=== PATIENT | male | born 1990 | race Caucasian/White ===

== ENCOUNTER 2021-10-07 04:44 | Emergency (ER) | payer BC, SELFPAY ==
[2021-10-07] VITALS (10 sets, daily range): BP systolic 89–123; BP diastolic 69–77; PULSE 80–102; RESP 15–28; TEMP 36.7–37.1; O2SAT 90–96; BMI 21.3
--- NOTE | 2021-10-07 04:44 | ECG_ITS ---
APPROVED REPORT Exam: Resting ECG HR:96 bpm ECG Measurements Heart Rate 96 AXES MT 139 P 73 QRSd 85 QRS 82 QT 314 T 21 QTc 367 Conclusion SINUS RHYTHM POSSIBLE RIGHT VENTRICULAR CONDUCTION DELAY [RSR (QR) IN V1/V2] NONSPECIFIC T-WAVE ABNORMALITY BORDERLINE ECG UNCONFIRMED REPORT Electronically signed by : Christopher Sandoval MD 10/08/2021 12:33:01
--- NOTE | 2021-10-07 04:51 | XR_ITS ---
PROCEDURE INFORMATION: Exam: XR Chest Exam date and time: 10/07/2021 4:44 AM Age: 31 years old Clinical indication: Pain; Shortness of breath; Right-sided; Additional info: Chest pain TECHNIQUE: Imaging protocol: XR of the chest. Views: 2 views. COMPARISON: No relevant prior studies available. FINDINGS: Lungs: Mild linear atelectasis/fibrosis. No focal consolidation. Pleural spaces: Unremarkable. No pleural effusion. No pneumothorax. Heart/Mediastinum: Unremarkable. No cardiomegaly. Bones/joints: Mild scoliosis. IMPRESSION: No evidence of an active pulmonary process.
--- NOTE | 2021-10-07 04:53 | HMH.EDSOB ---
ED Disposition Clinical Impression: Reactive airway disease Qualifiers: Asthma severity: moderate Asthma persistence: persistent Asthma complication type: uncomplicated Qualified Code(s): J45.40 - Moderate persistent asthma, uncomplicated Disposition: Home, Self-Care Condition on Discharge: Good Instructions: DI for Shortness of Breath Additional Instructions: see pcp for follow up Prescriptions: predniSONE [Prednisone 20mg Tab] 20 mg PO BID #10 tab Transmission Status: Pending to [facility] Referrals: Provider,Referral, [Primary Care Provider] - - Critical Care Critical Care Time: No Attestation: On , the high probability of a clinically significant, sudden or life threatening deterioration of the following system(s) required my full and direct attention, intervention and personal management. The time I documented below is in addition to time spent performing reported procedures but includes the following listed in this critical care notation. Medical Decision Making - Medical Records Medical records reviewed: Yes: I reviewed the patient's medical records. - Marcos Inquiry Pt receiving controlled substance: No Vital Signs: 10/07/21 04:44 10/07/21 04:45 10/07/21 05:01 Temperature 98.8 F Temperature Source Oral Pulse Rate 102 H 89 Pulse Rate [Right Radial] 95 H Respiratory Rate 28 H Blood Pressure 115/74 89/69 L Blood Pressure [Right Arm] 115/74 Blood Pressure Mean [Right Arm] 87 Blood Pressure Source [Right Arm] Automatic Cuff Blood Pressure Position [Right Arm] Sitting 02 Sat by Pulse Oximetry 90 L 95 96 Oxygen Delivery Method Room Air Room Air Room Air 10/07/21 05:30 10/07/21 06:30 Temperature Temperature Source Pulse Rate 99 H 101 H Pulse Rate [Right Radial] Respiratory Rate Blood Pressure 120/76 108/72 L Blood Pressure [Right Arm] Blood Pressure Mean [Right Arm] Blood Pressure Source [Right Arm] Blood Pressure Position [Right Arm] 02 Sat by Pulse Oximetry 96 96 Oxygen Delivery Method Room Air Room Air - Lab Data Lab results reviewed: Yes: I reviewed the patient's lab results. Lab Results 10/07/21 04:45: WBC 11.1 H, RBC 4.64, Hgb 14.4, Hct 43.0, MCV 92.7, MCH 31.1, MCHC 33.5, RDW 13.1, Plt Count 263, MPV 8.4, Neut % (Auto) 84.6 H, Lymph % (Auto) 9.7 L, Shoshone % (Auto) 4.4, Eos % (Auto) 0.8, Baso % (Auto) 0.4, Neut # (Auto) 9.4 H, Lymph # (Auto) 1.1, Shoshone # (Auto) 0.5, Eos # (Auto) 0.1, Baso # (Auto) 0.1, ESR 31 H 10/07/21 04:45: Sodium 136, Potassium 4.2, Chloride 100, Carbon Dioxide 31 H, Anion Gap 9.2, BUN 21 H, Creatinine 0.70, Estimated Creat Clear 161, Estimated GFR 131, Est GFR ( Amer) 158, Glucose 116 H, Calcium 9.0, Troponin I < 0.01, C-Reactive Protein 15.4 H 10/07/21 04:45: Total Bilirubin 0.6, Direct Bilirubin 0.1, Conjugated Bilirubin 0.0, Indirect Bilirubin 0.5, Unconjugated Bilirubin 0.5, AST 35, ALT 18, Alkaline Phosphatase 82, Total Protein 7.3, Albumin 4.4 10/07/21 04:56: SARS-CoV-2 (PCR) Not detected, Influenza A Untype (PCR) Not detected, Influenza Type B (PCR) Not detected Result diagrams: 10/07/21 04:45 10/07/21 04:45 Orders (Tests/Meds): ED MEDICATIONS Discontinued Medications Generic Name Dose Route Start Last Admin Trade Name Freq PRN Reason Stop Dose Admin Albuterol/Ipratropium 3 ml 10/07/21 04:56 Ipratropium/Albuterol 3 Ml Neb IH 10/07/21 04:57 ONCE ONE Lactated Ringer's 1,000 mls @ 999 mls/hr 10/07/21 05:00 10/07/21 05:01 Lactated Ringer's 1000 Ml Bag IV 10/07/21 06:00 999 mls/hr .Q1H1M SYDNEY Administration Iopamidol 70 ml 10/07/21 05:28 10/07/21 05:29 Iopamidol-370 (76%);100ml Bottle IV 10/07/21 05:29 70 ml ONCE ONE Administration Ketorolac Tromethamine 30 mg 10/07/21 04:56 10/07/21 05:01 Ketorolac 30mg/Ml Vial IV 10/07/21 04:57 30 mg ONCE ONE Administration Methylprednisolone Sodium Succinate 125 mg 10/07/21 04:53 10/07/21 05:01 Methylpred
--- NOTE | 2021-10-07 04:58 | CT_ITS ---
PROCEDURE INFORMATION: Exam: CTA Chest With Contrast Exam date and time: 10/07/2021 5:17 AM Age: 31 years old Clinical indication: Shortness of breath; Sternal or substernal pain; Additional info: SOA and chest tightness TECHNIQUE: Imaging protocol: Computed tomographic angiography of the chest with contrast. 3D rendering (Not supervised by radiologist): MIP and/or 3D reconstructed images were created by the technologist. Radiation optimization: All CT scans at this facility use at least one of these dose optimization techniques: automated exposure control; mA and/or kV adjustment per patient size (includes targeted exams where dose is matched to clinical indication); or iterative reconstruction. Contrast material: ISOVUE; Contrast volume: 70 ml; Contrast route: INTRATHECAL (MYELOGRAM); COMPARISON: CR XR CHEST 2V 10/07/2021 4:44 AM FINDINGS: Pulmonary arteries: The peripheral pulmonary arteries are is somewhat suboptimally opacified and there is mild motion artifact. Otherwise, there is no evidence of a pulmonary embolus. Aorta: Unremarkable. No aortic aneurysm. No aortic dissection. Lungs: Moderate reticular and ground-glass type opacities in the lung bases. Findings are are likely due to linear atelectasis/fibrosis (hypoventilatory changes). Nonspecific 4 mm juxtapleural nodule in the RML. Pleural spaces: Unremarkable. No pneumothorax. No pleural effusion. Heart: Unremarkable. No cardiomegaly. No pericardial effusion. Mediastinal space: Mild nonspecific esophageal thickening. Lymph nodes: Unremarkable. No enlarged lymph nodes. Bones/joints: Mild scoliosis. Soft tissues: Unremarkable. Other findings: No evidence of aneurysm or dissection. IMPRESSION: 1. No definite active pulmonary process. 2. Mildly limited, but otherwise unremarkable CTA. 3. Moderate reticular and ground-glass type opacities in the lung bases. Findings are are likely due to linear atelectasis/fibrosis (hypoventilatory changes). 4. Nonspecific 4 mm juxtapleural nodule in the RML which can be followed as indicated. 5. Mild nonspecific esophageal thickening. If the patient does not have known cancer, follow up should be based on clinical information because of the low risk of cancer in this age group. (Reference: Christiano) References: Christiano Pinto, et al. Guidelines for Management of Incidental Pulmonary Nodules Detected on CT Images: From the Fleischner Society 2017. Radiology. 2017;284(1):228-243.
[2021-10-07 05:01] LABS: Basophils # 0.1 K/mm3 (0-0.2); Basophils % 0.4 % (0.1-2.0); Eosinophils # 0.1 K/mm3 (0.0-0.4); Eosinophils % 0.8 % (0.1-12.0); Hemoglobin 14.4 g/dL (14.1-18.0); Lymphocytes # 1.1 K/mm3 (0.7-4.5); Lymphocytes % 9.7 % (10-50); Mean Corpuscular HGB Conc 33.5 g/dL (31.8-35.4); Mean Corpuscular Hemoglobin 31.1 pg (27.0-31.2); Mean Corpuscular Volume 92.7 fl (80-94); Mean Platelet Volume 8.4 fl (7.4-10.4); Monocytes # 0.5 K/mm3 (0.1-1.0); Monocytes % 4.4 % (1.7-9.3); Neutrophils # 9.4 K/mm3 (1.8-7.8); Neutrophils % 84.6 % (37.0-80.0); Platelet Count 263 K/mm3 (142-424); Red Blood Count 4.64 M/mm3 (4.60-6.20); Red Cell Distribution Width 13.1 % (11.5-17.5); White Blood Count 11.1 K/mm3 (4.8-10.8)
[2021-10-07 05:04] LABS: Alanine Aminotransferase 18 U/L (12-78); Albumin Level 4.4 g/dl (3.5-5.0); Alkaline Phosphatase 82 U/L (38-126); Anion Gap 9.2 mEq/L (5-15); Aspartate Amino Transferase 35 U/L (17-59); Bilirubin,Direct 0.1 mg/dl (0.0-0.4); Bilirubin,Indirect 0.5 mg/dL (0.0-0.9); Bilirubin,Total 0.6 mg/dl (0.2-1.3); Bilirubin,Unconjugated 0.5 mg/dL (0.0-1.1); Blood Urea Nitrogen 21 mg/dl (9-20); Carbon Dioxide 31 mmol/L (22.0-30.0); Chloride 100 mmol/L (98-107); Creatinine Clearance Estimated 161 mL/min (50-200); Estimated Glomerular Filt Rate 131 ml/min (>60); GFR (African American) 158 ML/MIN (>60); Glucose 116 mg/dl (74-100); Potassium 4.2 mmoL/L (3.5-5.1); Sodium 136 mmol/L (136-145); Total Protein,Serum 7.3 g/dl (6.3-8.2)
[2021-10-07 05:09] LABS: C-Reactive Protein 15.4 mg/L (0-4)
[2021-10-07 05:26] LABS: Troponin I < 0.01 ng/ml (0.00-0.034)
[2021-10-07 05:31] LABS: Erythrocyte Sedimentation Rate 31 mm/hr (0-15)
[2021-10-07 05:32] LABS: Coronavirus 19, PCR Not Detected (NotDetected); Influenza A, PCR Not Detected (NotDetected); Influenza B, PCR Not Detected (NotDetected)
--- NOTE | 2021-10-07 07:26 | PC.NURSE ---
Pt ambulated to bathroom. Back to room at this time with at bedside.
[2021-10-07 08:50] LABS: Troponin I < 0.01 ng/ml (0.00-0.034)
== END 2021-10-07 08:56 | disposition home or self-care (01) ==
PROVIDERS: Emergency Provider Emergency Medicine
DX: J45.40 Moderate persistent asthma, uncomplicated (principal); R01.1 Cardiac murmur, unspecified; F17.290 Nicotine dependence, other tobacco product, uncomplicated; Z20.822 Contact with and (suspected) exposure to COVID-19
CPT/HCPCS: 71046; 71275; 80048; 80076; 84484; 85025; 85651; 86140; 93005; 96361; 96365; 96374; 96375; 99285; C9803; Q9967; U0003; U0005

== ENCOUNTER 2021-12-31 17:18 | Emergency (ER) | payer SELFPAY ==
[2021-12-31 17:45] VITALS: BP 144/84; PULSE 122; RESP 22; TEMP 37.7; O2SAT 99; BMI 21.2
--- NOTE | 2021-12-31 18:05 | HMH.EDUTC ---
[facility] [place] Disposition Clinical Impression: URI (upper respiratory infection) Qualifiers: URI type: unspecified URI Qualified Code(s): J06.9 - Acute upper respiratory infection, unspecified Disposition: Home, Self-Care Condition on Discharge: Good Instructions: DI for Sinusitis, Sinusitis Additional Instructions: *Monitor Temp, Over the counter Motrin or Tylenol as directed/as needed Tylenol every 4 hours and Motrin every 6 hours (as long as your family doctor has told you that you can take it) for fever or pain. and straight to ER if unable to lower temp less than 101.0 after medication given *Warm salt water gargles may help to soothe the throat *Throat Lozenges *Warm fluids like tea with honey may help to soothe the throat *Sleep elevated *Humidifier/Vaporizer Take medication as prescribed Follow up IMMEDIATELY for new or worsening symptoms or no Noticeable improvement over the next 48-72 hours. 911 for difficulty breathing or swallowing Prescriptions: Brompheniramine/Pseudoephed/Dm [Bromfed Dm Cough Syrup] 10 ml PO Q4-6H PRN #200 ml PRN Reason: Cough Transmission Status: Pending to [facility] predniSONE [Prednisone 20mg Tab] 20 mg PO BID #10 tab Transmission Status: Pending to [email or web address] Azithromycin [Z-Mike 250mg Tab] 250 mg PO DIRECTED #6 tab Transmission Status: Pending to [facility] Referrals: Provider,Referral, MD [Primary Care Provider] - As needed Forms: Work/School Release Time of Disposition: 18:36 Medical Decision Making - Marcos Inquiry Pt receiving controlled substance: No Marcos was queried for this patient: No Vital Signs: 12/31/21 17:45 Temperature 99.8 F H Temperature Source Oral Pulse Rate [Right Brachial] 122 H Respiratory Rate 22 Blood Pressure [Right Arm] 144/84 H Blood Pressure Mean [Right Arm] 104 Blood Pressure Source [Right Arm] Automatic Cuff Blood Pressure Position [Right Arm] Sitting 02 Sat by Pulse Oximetry 99 Oxygen Delivery Method Room Air Orders (Tests/Meds): ORDERS Category Date Time Status Full Resp Panel w/COVID ([facility]) Routine Lab 12/31/21 17:50 Received [facility] [place] HPI - General Stated complaint: cough congestion Runny nose Time Seen by Provider: 12/31/21 18:05 Mode of Arrival: Ambulatory Source of Information: Patient Limitations: No Limitations Description of Symptoms (Recalled from Triage Doc. by RN): PATIENT C/O SINUS CONGESTION/DRAINAGE AND COUGH X 1 WEEK HEENT Symptoms (Recalled from RN notes): Yes Resp Symptoms (Recalled from RN notes): Yes Skin Symptoms (Recalled from RN notes): No MS Symptoms (Recalled from RN notes): No Functional Status (Recalled from RN notes): WNL - History of Present Illness Provider Complaint: Patient states that he has been having sinus pain and pressure along with cough and scratchy throat for about a week that has continued to get worse State that he feels like he may have a sinus infection but wanted to get checked - Related Data Previous Rx's Medication Instructions Recorded predniSONE [Prednisone 20mg 20 mg PO BID #10 tab 10/07/21 Tab] Azithromycin [Z-Mike 250mg Tab] 250 mg PO DIRECTED #6 tab 12/31/21 Brompheniramine/Pseudoephed/Dm 10 ml PO Q4-6H PRN #200 ml 12/31/21 [Bromfed Dm Cough Syrup] predniSONE [Prednisone 20mg 20 mg PO BID #10 tab 12/31/21 Tab] Allergies Allergy/AdvReac Type Severity Reaction Status Date / Time No Known Allergies Allergy Verified 01/20/21 15:49 - Worker's Comp Is this a Worker's Comp case?: No [facility] History - Hepatitis A Screen Attestation statement:: This patient has been screened for Hepatitis A risk factors. 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
[2021-12-31 18:11] LABS: Adenovirus,PCR Not Detected (NotDetected); Bordetella Pertussis Not Detected (NotDetected); Chlamydophila Pneumoniae, PCR Not Detected (NotDetected); Coronavirus 19, PCR Not Detected (NotDetected); Coronavirus 229E Not Detected (NotDetected); Coronavirus NL63 Not Detected (NotDetected); Coronavirus OC43 Not Detected (NotDetected); Coronovirus HKU1,PCR Not Detected (NotDetected); Influenza A, PCR Not Detected (NotDetected); Influenza AH1, 2009 Not Detected (NotDetected); Influenza AH1, PCR Not Detected (NotDetected); Influenza AH3,PCR Not Detected (NotDetected); Influenza B, PCR Not Detected (NotDetected); Mycoplasma Pneumoniae, PCR Not Detected (NotDetected); Parainfluenza 1, PCR Not Detected (NotDetected); Parainfluenza 2, PCR Not Detected (NotDetected); Parainfluenza 3, PCR Not Detected (NotDetected); Parainfluenza 4, PCR Not Detected (NotDetected); Respiratory Syncytial Virus Not Detected (NotDetected); Rhinovirus/Enterovirus Not Detected (NotDetected)
[2021-12-31 18:31] VITALS: BP 144/84; PULSE 122; RESP 22; TEMP 37.7; O2SAT 99
[2021-12-31 23:11] LABS: Human Metapneumovirus Detected (NotDetected)
== END 2021-12-31 18:44 | disposition home or self-care (01) ==
PROVIDERS: Emergency Provider Nurse Practitioner
DX: J12.3 Human metapneumovirus pneumonia (principal); J06.9 Acute upper respiratory infection, unspecified; R01.1 Cardiac murmur, unspecified; Z20.822 Contact with and (suspected) exposure to COVID-19
CPT/HCPCS: 87581; 87632; 87798; 99213; C9803; G0463; U0003; U0005

== ENCOUNTER 2022-01-05 17:19 | Emergency (ER) | payer BC, SELFPAY ==
[2022-01-05 17:30] VITALS: BP 131/89; PULSE 108; RESP 22; TEMP 37.4; O2SAT 97; BMI 21.4
--- NOTE | 2022-01-05 17:46 | XR_ITS ---
PROCEDURE INFORMATION: Exam: XR Chest Exam date and time: 01/05/2022 6:11 PM Age: 31 years old Clinical indication: Other: Congestion; Additional info: Congestion, vapes TECHNIQUE: Imaging protocol: Radiologic exam of the chest. Views: 2 views. COMPARISON: CR XR CHEST 2V 10/07/2021 4:44 AM FINDINGS: Lungs: Unremarkable. No consolidation. Pleural spaces: Unremarkable. No pleural effusion. No pneumothorax. Heart/Mediastinum: Unremarkable. No cardiomegaly. Bones/joints: Unremarkable. IMPRESSION: No acute findings.
--- NOTE | 2022-01-05 18:02 | HMH.EDUTC ---
[facility] [place] Disposition Clinical Impression: Acute bronchitis Qualifiers: Bronchitis organism: other organism Qualified Code(s): J20.8 - Acute bronchitis due to other specified organisms Disposition: Home, Self-Care Condition on Discharge: Good Instructions: DI for Acute Bronchitis Additional Instructions: Tylenol and ibuprofen as needed for pain or fever Humidifier/vaporizer/hot steamy shower Follow-up with primary care tomorrow. Follow-up immediately in the ER of the [facility] for new or worsening symptoms or no noticeable improvement over the next 48-72 hours. Stop smoking Inhaler every 4-6 hours as needed. Should help open airways improved cough, wheezing, shortness of breath Paul Diaz will not cause drowsiness to use at bedtime to help stop cough so that she can get some sleep Prescriptions: Benzonatate [Benzonatate 100mg cap] 100 mg PO BID PRN 7 Days #14 cap PRN Reason: Cough Transmission Status: Pending to [facility] Referrals: Provider,Referral, [Primary Care Provider] - Time of Disposition: 19:04 Medical Decision Making - Marcos Inquiry Pt receiving controlled substance: No Vital Signs: 01/05/22 17:30 01/05/22 18:22 Temperature 99.4 F 99.4 F Temperature Source Oral Pulse Rate 108 H Pulse Rate [Right Brachial] 108 H Respiratory Rate 22 22 Blood Pressure 131/89 Blood Pressure [Right Arm] 131/89 Blood Pressure Mean [Right Arm] 103 Blood Pressure Source [Right Arm] Automatic Cuff Blood Pressure Position [Right Arm] Sitting 02 Sat by Pulse Oximetry 97 Oxygen Delivery Method Room Air Orders (Tests/Meds): ED MEDICATIONS Discontinued Medications Generic Name Dose Route Start Last Admin Trade Name Freq PRN Reason Stop Dose Admin Albuterol Sulfate 2 puff 01/05/22 18:08 01/05/22 18:16 Albuterol-Hfa 90mcg/Puff Inhaler 8gm IH 01/05/22 18:09 2 puff ONCE ONE Administration Miscellaneous 1 unit 01/05/22 18:08 01/05/22 18:18 Aerochamber/Optihaler MC 01/05/22 18:09 1 unit ONCE ONE Administration [facility] HPI - General Chief complaint: Urgent Treatment Center Stated complaint: Cough, pain upper R chest Time Seen by Provider: 01/05/22 18:08 Mode of Arrival: Ambulatory Source of Information: Patient Limitations: No Limitations Description of Symptoms (Recalled from Triage Doc. by RN): PATIENT C/O COUGH THAT HE HAS HAD FOR APPROX 1 WEEK. HE WAS SEEN IN [facility] ON 12/31/21 AND TESTED POSITIVE FOR HUMAN METAPNUEMOVIRUS. HE CONTINUES TO HAVE A COUGH AND C/O PAIN TO RIGHT RIB AREA HEENT Symptoms (Recalled from RN notes): No Resp Symptoms (Recalled from RN notes): Yes Skin Symptoms (Recalled from RN notes): No MS Symptoms (Recalled from RN notes): No Functional Status (Recalled from RN notes): WNL - History of Present Illness Provider Complaint: 31 yr old male presents for cough and rt rib pain since 12/30. pt states he finished a zpak and steroids and feels better but can not break the cough. - Related Data Previous Rx's Medication Instructions Recorded Benzonatate [Benzonatate 100mg 100 mg PO BID PRN 7 Days #14 cap 01/05/22 cap] Allergies Allergy/AdvReac Type Severity Reaction Status Date / Time No Known Allergies Allergy Verified 01/20/21 15:49 - Worker's Comp Is this a Worker's Comp case?: No [facility] History - Hepatitis A Screen Attestation statement:: This patient has been screened for Hepatitis A risk factors. I have reviewed the patient's past medical history: Yes Medical History: Reports:: Heart Murmur Laterality Cases: Bilateral: Myringotomy (Ear Tubes), Tonsillectomy Other Surgeries: Yes: No Previous Surgery - Social History Smoking Status: Never smoker Tobacco Type: e-cigarettes Alcohol Intake: never Alcohol Intake Frequency:: 0-2 drinks per day Occupational Status: other Family Hx:: Non-contributory ROS Obtained: Yes Systems reviewed as appropriate & no additional complaints - Constitutional Constitutional: Report
[2022-01-05 18:22] VITALS: BP 131/89; PULSE 108; RESP 22; TEMP 37.4; O2SAT 97
== END 2022-01-05 19:10 | disposition home or self-care (01) ==
PROVIDERS: Emergency Provider Nurse Practitioner Family
DX: J02.8 Acute pharyngitis due to other specified organisms (principal); R07.81 Pleurodynia; R01.1 Cardiac murmur, unspecified
CPT/HCPCS: 71046; 99213; G0463

== ENCOUNTER 2022-06-20 13:34 | Emergency (ER) | payer BC, SELFPAY ==
--- NOTE | 2022-06-20 14:49 | EXP.UTC ---
Discharge Plan Disposition Patient Disposition: Home, Self-Care Condition: Good Prescriptions Prescriptions: New benzonatate [benzonatate] 100 mg capsule 100 mg PO TIDP PRN (Reason: Cough) Qty: 30 0RF oseltamivir [Tamiflu] 75 mg capsule 75 mg PO BID Qty: 10 0RF ondansetron 4 mg Tablet,Disintegrating 4 mg PO Q8H PRN (Reason: Nausea) Qty: 12 0RF No Action benzonatate 100 MG capsule 100 mg PO BID PRN (Reason: Cough) 7 Days Qty: 14 0RF Referrals Follow up/Referrals: Provider,Referral, MD [Primary Care Provider] - See instructions Activity Restrictions/Add. Instructions Additional Instructions/Restrictions: Drink plenty of fluids. Take tylenol or ibuprofen for pain or fever. Take the medications as directed. Follow up with your regular doctor. GO TO THE ER FOR ANY WORSENING SYMPTOMS Clinical Impressions Clinical Impression: Influenza A Instructions Patient Instructions: DI for Influenza -- Adult, Oseltamivir Discharge ED Provider: Fili Marcelino [facility] General Stated complaint: Persistant cough, chest congestion, weakness Time Seen by Provider: 06/20/22 14:49 History of Present Illness Provider Complaint: He states that for the past 2 days he has had fever, chills, body aches, sore throat and a cough. He has been exposed to influenza. Related Data Previous Rx's Medication Instructions Recorded benzonatate 100 mg capsule 100 mg PO BID PRN Cough 7 days #14 01/05/22 caps benzonatate 100 mg capsule 100 mg PO TIDP PRN Cough #30 caps 06/20/22 ondansetron 4 mg disintegrating 4 mg PO Q8H PRN Nausea #12 tabs 06/20/22 tablet oseltamivir 75 mg capsule (Tamiflu) 75 mg PO BID #10 caps 06/20/22 Allergies Allergy/AdvReac Type Severity Reaction Status Date / Time No Known Allergies Allergy Verified 06/20/22 15:03 [facility] Social History Smoking Status: Never smoker alcohol intake: never current occupational status: other Travel in the last 8 weeks: None ROS Obtained: Yes All systems reviewed & no additional complaints except as documented Constitutional Constitutional: Reports chills and Reports fever(s) Eyes Eyes: Denies eye discharge ENT Ears, Nose, Mouth, and Throat: Reports as per HPI Cardiovascular Cardiovascular: Denies chest pain Respiratory Respiratory: Denies chest congestion and Reports cough Gastrointestinal Gastrointestingal: Reports nausea; Denies abdominal pain, constipation, cramping, diarrhea or vomiting Musculoskeletal Musculoskeletal: Denies arthralgias Integumentary/Breasts Skin/Breast: Denies rash Neurologic Neurologic: Denies paresthesias Physical Exam General General appearance: alert and in no apparent distress Head Head exam: atraumatic, normocephalic and normal inspection Eye Eye exam: Present normal appearance, PERRL and EOMI ENT ENT exam: Present normal exam, normal oropharynx, mucous membranes moist, TM's normal bilaterally and normal external ear exam Neck Neck exam: Present normal inspection, full ROM and trachea midline; Absent meningismus or lymphadenopathy Chest Chest inspection: Present normal inspection and symmetric chest wall rise; Absent tenderness Respiratory Respiratory exam: Present normal lung sounds bilaterally; Absent respiratory distress Cardiovascular Cardiovascular exam: Present regular rate and normal rhythm; Absent JVD Abdominal Exam Abdominal exam: Present soft and normal bowel sounds; Absent distention, tenderness or guarding Extremities Exam Extremities exam: Present normal inspection, full ROM and normal capillary refill; Absent calf tenderness Back Exam Back exam: Present normal inspection; Absent tenderness Neurological Exam Neurological exam: Present alert and oriented X3 Psychiatric Psychiatric exam: Present normal affect and normal mood Skin Skin exam: Present warm, dry, intact and normal color Lymphatic Lymphatic Findings: no adenopath
[2022-06-20 14:59] LABS: UTC Influenza A Antigen Positive (Negative); UTC Influenza B Antigen Negative (Negative)
[2022-06-20 15:01] VITALS: BP 120/69; PULSE 110; RESP 18; TEMP 39.1; O2SAT 97; BMI 21.1
[2022-06-20 15:24] VITALS: BP 120/69; PULSE 110; RESP 18; TEMP 38.3
== END 2022-06-20 15:35 | disposition home or self-care (01) ==
PROVIDERS: Emergency Provider Nurse Practitioner Family
DX: J10.1 Influenza due to other identified influenza virus with other respiratory manifestations (principal); R50.9 Fever, unspecified; R05.9 Cough, unspecified; R53.1 Weakness; M79.10 Myalgia, unspecified site; Z79.899 Other long term (current) drug therapy
CPT/HCPCS: 87804; 99213; G0463